=== PATIENT | female | born 1940 | race Caucasian/White ===

== ENCOUNTER → 2016-08-05 | Outpatient (CLI) | payer MEDICARE, BC ==
--- NOTE | 2016-08-06 08:30 | USB ---
Reason for exam: follow-up at short interval from prior study. History: Patient is postmenopausal and has history of high-risk lesion on a previous biopsy at age 67. Family history of premenopausal breast cancer in mother at age 50. Benign US biopsy breast VAD LT of the left breast, February 05, 2016. Excisional biopsy of the left breast, May 10, 2008. Benign left mammotome panel of the left breast, April 24, 2008. Benign left mammotome panel of the left breast, April 24, 2008. Excisional biopsy of the left breast, March 10, 2003. Benign stereotactic core biopsy of the left breast, August 11, 2002. Benign stereotactic core biopsy of the left breast, June 18, 2000. 2 core biopsies of the left breast. 3 benign excisional biopsies of the left breast. Took estrogen for 11 years 6 months beginning at age 56. Took progesterone for 11 years 6 months beginning at age 56. Physical Findings: Nurse did not find any significant physical abnormalities on exam. US Breast LT Left breast ultrasound includes all four quadrants, the retroareolar region and axilla. Finding demonstrates the biopsied excisional scar with adjacent calcification is redemonstrated at 11 o'clock. No other solid or cystic change. Dense tissues in the upper outer quadrant. These results were verbally communicated with the patient and result sheet given to the patient on 08/05/16. ASSESSMENT: Benign, BI-RAD 2 RECOMMENDATION: Return to routine screening mammogram schedule for both breasts. Back on schedule.
== END | disposition home or self-care (01) ==
LOC: RADUSWWP 14:03
PROVIDERS: ATTEND Internal Medicine
DX: R92.8 Other abnormal and inconclusive findings on diagnostic imaging of breast (principal)

== ENCOUNTER 2016-10-28 12:33 | Emergency (ER) | payer MEDICARE, BC ==
[2016-10-28] MEDS ORDERED: HYDROcodone/APAP 5-325MG 1 EACH TAB PO STA (12:58)
--- NOTE | 2016-10-28 13:04 | ED ---
Fall HPI - General Chief Complaint: Fall Stated Complaint: Fall Time Seen by Provider: 10/28/16 12:45 Source: patient Mode of arrival: EMS - History of Present Illness Initial Comments: 74-year-old female patient presents to emergency department today for evaluation after she experienced a fall. Patient states around 12:00 this afternoon she was walking when she twisted her ankle on some uneven sidewalk and fell forward and hit her face on the cement. Patient denies any loss of consciousness. She is complaining of "severe" headache, facial pain, and states she is unable to breathe through her left nostril. He is also complaining of some mild right ankle pain with flexion and extension. Patient states she was able to get up and ambulated over to the EMS stretcher. She denies any nausea, vomiting, chest pain, back pain, neck pain, abdominal pain, shortness of breath, dizziness, weakness, blurred, or double vision. Patient has not had a tetanus shot. Current GCS is 15. - Related Data Home Medications Medication Instructions Recorded Confirmed Ergocalciferol [Vitamin D2] 50,000 unit PO Q7D 10/28/16 10/28/16 Levothyroxine Sodium [Levoxyl] 137 mcg PO DAILY 10/28/16 10/28/16 Allergies Allergy/AdvReac Type Severity Reaction Status Date / Time aspirin Allergy Unknown Verified 10/28/16 12:48 Iodinated Contrast- Oral and AdvReac Nausea & Unverified 10/28/16 12:48 IV Dye Vomiting [Iodinated Contrast Media - IV Dye] Review of Systems ROS Statement: Those systems with pertinent positive or pertinent negative responses have been documented in the HPI. ROS Other: All systems not noted in ROS Statement are negative. Past Medical History Past Medical History: Thyroid Disorder Additional Past Medical History / Comment(s): colitis, brain aneurysm History of Any Multi-Drug Resistant Organisms: None Reported Past Surgical History: Cholecystectomy, Orthopedic Surgery Additional Past Surgical History / Comment(s): craniotomy r/t aneurysm Past Psychological History: No Psychological Hx Reported Smoking Status: Never smoker Past Alcohol Use History: Occasional Past Drug Use History: None Reported General Exam Limitations: no limitations General appearance: alert, in no apparent distress Head exam: Present: normocephalic. Absent: atraumatic (Abrasion and laceration noted to nasal bridge, abrasion to Center of forehead), normal inspection Eye exam: Present: normal appearance, PERRL, EOMI. Absent: scleral icterus, conjunctival injection, periorbital swelling Pupils: Present: normal accommodation ENT exam: Present: normal exam, normal oropharynx, mucous membranes moist Neck exam: Present: normal inspection, other (C-collar in place). Absent: tenderness, meningismus, full ROM (C-collar in place), lymphadenopathy Respiratory exam: Present: normal lung sounds bilaterally. Absent: respiratory distress, wheezes, rales, rhonchi, stridor Cardiovascular Exam: Present: regular rate, normal rhythm, normal heart sounds. Absent: systolic murmur, diastolic murmur, rubs, gallop, clicks GI/Abdominal exam: Present: soft, normal bowel sounds. Absent: distended, tenderness, guarding, rebound, rigid Extremities exam: Present: full ROM, tenderness (Over medial malleolus on the right ankle.), normal capillary refill. Absent: normal inspection (Small laceration noted to palmar aspect of the right hand.), pedal edema, joint swelling, calf tenderness Back exam: Present: normal inspection, full ROM. Absent: tenderness Neurological exam: Present: alert, oriented X3, CN II-XII intact Psychiatric exam: Present: normal affect, normal mood Skin exam: Present: warm, dry, intact, normal color. Absent: rash Course Vital Signs 10/28/16 12:38 Temperature 97.4 F L Pulse Rate 63 Respiratory 18 Rate Blood Pressure 158/69 O2 Sat by Pulse 97 Oximetry Procedures - Laceration Laceration #1 Consent Obtained: verbal consent Time Out Performed: Yes Indication: laceration Site: face Size (cm): 2 Description: linear Depth: simple, single layer Anesthetic Used: lidocaine 1% Anesthesia Technique: local infiltration Amount (mls): 3 Pre-repair: wound explored, irrigated extensively Type of Sutures: nylon Size of Sutures: 6-0 Number of Sutures: 2 Technique: simple, interrupted Patient Tolerated Procedure: well, no complications Laceration #2 Consent Obtained: verbal consent Time Out Performed: Yes Indication: laceration Site: hand Size (cm): 3 Description: linear Depth: simple, single layer Anesthetic Used: lidocaine 1% Anesthesia Technique: local infiltration Amount (mls): 3 Pre-repair: wound explored, irrigated extensively Type of Sutures: nylon Size of Sutures: 5-0 Number of Sutures: 3 Technique: simple, interrupted Patient Tolerated Procedure: well, no complications Medical Decision Making - Medical Decision Making 75-year-old female patient presented to emergency department today for evaluation after she experienced a fall. Patient was complaining of headache, nasal pain, and right ankle pain. CT of the brain and C-spine revealed a minimally displaced comminuted fracture to the nasal bones, but no acute intracranial hemorrhage, midline shift, or skull fracture. Incidental findings on CT were some changes from a right craniotomy. X-ray of the right ankle revealed no acute osseous abnormalities. Tetanus updated. Patient will be discharged home with instructions to follow up with ENT. Patient instructed regarding return parameters. Patient instructed to return for any new, worsening, or concerning symptoms. Patient verbalizes understanding and agrees with this plan. - Radiology Data Radiology results: report reviewed, image reviewed CT of the brain and C-spine impression by Dr. Royal reveals no acute fracture or dislocation evident in the cervical spine, no acute intracranial hemorrhage or midline shift is seen. 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 Acute comminuted minimally displaced fractures of the nasal bones. No additional acute facial bone fracture or dislocation is seen. X-ray of the right ankle reveals no acute osseous abdomen ALLERGIES. Disposition Clinical Impression: Fall, Nasal bone fracture, Laceration of nose, Laceration of hand Disposition: HOME SELF-CARE Condition: Good Instructions: Nasal Fracture (ED), Fall Prevention for Older Adults (ED), Contusion in Adults (ED), Abrasion (ED) Additional Instructions: Keep lacerations clean and dry. Cleanse stitched areas twice daily with warm water and soap prevent scabbing. Follow up for evaluation with ENT in 1-2 days. Return for any signs or symptoms of infection including but not limited to redness, swelling, drainage of pus, fever, or chills. Return for any new, worsening, or concerning symptoms. Referrals: Halina Herzog MD [Primary Care Provider] - 1-2 days Ismael Ji MD [REFERRING] - 1-2 days Time of Disposition: 15:00
--- NOTE | 2016-10-28 13:59 | CT ---
EXAMINATION TYPE: CT brain cspine wo con, CT facial bones wo con DATE OF EXAM: 10/28/2016 COMPARISON: NONE HISTORY: Patient complains of fall today with nasal abrasion and facial pain. Patient complains of h eadache, nose, and neck pain post fall. CT DLP: 1488.0 (accession [id number]), 384.4 (accession [id number]) mGycm. Automated Exposure Control for Dose Reduction was Utilized. TECHNIQUE: CT scan of the head, facial bones, and cervical spine are all performed without contrast. FINDINGS: There is right temporal craniectomy with artifact from aneurysm clips along course of rig ht middle cerebral artery. There is vague oval area of hypodensity anterior right frontal lobe could reflect area of encephalomalacia but central hyperdensity or sulci makes other etiologies such as mas s with vasogenic edema not excluded. Former is favored. There is no acute intracranial hemorrhage or midline shift. There is ventricular and sulcal prominence consistent with diffuse cerebral atrophy. T here is low-attenuation in the periventricular white matter. There is higher right frontal temporal c raniotomy and surinder hole changes. There is acute comminuted minimally displaced fracture through nasal bones bilaterally. There is mild associated soft tissue swelling. The zygomatic arches are intact bilaterally. The orbital floors and charles are intact bilaterally. The globes are intact bilaterally. There is poor visualization of left lens. Right lens is slightly asymmetrically thickened of uncertain clinical significance. The visual ized mandible is intact. Temporomandibular joints are maintained bilaterally. The pterygoid plates ar e intact bilaterally. Cervical spine is visualized in its entirety from C1 through upper thoracic levels and demonstrates s traightened alignment without evidence of acute fracture or dislocation. Prevertebral soft tissue ap pears within normal limits. The C1-C2 articulation is within normal limits on the coronal images. Osseous structures are demineralized. Vertebral body heights are maintained. There is moderate spurri ng and disc space narrowing C4-C5 and C5-C6 levels. There is mild to moderate spurring and disc space narrowing C6-C7 level. Posterior spur disc complexes are effacing anterior thecal sac at C4-C5 and C 5-C6 levels on sagittal images. Review of axial images shows lung apices to appear clear. Right thyroid lobe is slightly more promine nt. There are left-sided uncovertebral facet degenerative changes C3-C4 level causing mild left-sided neural foraminal narrowing. IMPRESSION: 1. There is no acute fracture or dislocation evident in the cervical spine. 2. No acute intracranial hemorrhage or midline shift is seen. Right frontal lobe findings favor encep halomalacia related to aneurysm and/or surgery, correlation with old outside studies would be benefic ial to confirm. If new finding further investigation with contrast-enhanced CT would be recommended. 3. Acute comminuted minimally displaced fractures of nasal bones. No additional acute facial bone fra cture or dislocation is seen.
--- NOTE | 2016-10-28 14:46 | XR ---
EXAMINATION TYPE: XR ankle complete RT DATE OF EXAM: 10/28/2016 CLINICAL HISTORY: Rolling injury with pain TECHNIQUE: Frontal, lateral and oblique images of the right ankle are obtained. COMPARISON: None. FINDINGS: There is no acute fracture/dislocation evident in the right ankle. The ankle mortise appe ars within normal limits. There are moderate-sized superior and inferior calcaneal spurs. Occasional phlebolith is seen in the soft tissue distal leg level. IMPRESSION: There is no acute fracture or dislocation in the right ankle.
[2016-10-28] MEDS ORDERED: DIPH,PERTUS(ACELL)TETVAC-LF 0.5 ML VIAL IM ONE (15:02)
[2016-10-28 15:12] VITALS: BP 145/68; PULSE 61; RESP 20; TEMP 98.2
== END 2016-10-28 15:30 | disposition home or self-care (01) ==
LOC: EC 12:33
DX: S02.2XXA Fracture of nasal bones, initial encounter for closed fracture (principal); S01.21XA Laceration without foreign body of nose, initial encounter; S61.411A Laceration without foreign body of right hand, initial encounter; E07.9 Disorder of thyroid, unspecified; Z23 Encounter for immunization; Z79.899 Other long term (current) drug therapy; Z88.6 Allergy status to analgesic agent; Z91.041 Radiographic dye allergy status; W18.00XA Striking against unspecified object with subsequent fall, initial encounter; X50.1XXA Overexertion from prolonged static or awkward postures, initial encounter
CPT/HCPCS: 12002; 12011; 70450; 70486; 72125; 90471; 90715; 99285

== ENCOUNTER → 2017-01-08 | Outpatient (CLI) | payer MEDICARE, BC ==
--- NOTE | 2017-01-09 14:46 | MM ---
Reason for exam: screening (asymptomatic). Last mammogram was performed 11 months ago. History: Patient is postmenopausal and has history of high-risk lesion on a previous biopsy at age 67. Family history of premenopausal breast cancer in mother at age 50. Benign US biopsy breast VAD LT of the left breast, February 05, 2016. Excisional biopsy of the left breast, May 10, 2008. Benign left mammotome panel of the left breast, April 24, 2008. Benign left mammotome panel of the left breast, April 24, 2008. Excisional biopsy of the left breast, March 10, 2003. Benign stereotactic core biopsy of the left breast, August 11, 2002. Benign stereotactic core biopsy of the left breast, June 18, 2000. 2 core biopsies of the left breast. 3 benign excisional biopsies of the left breast. Took estrogen for 11 years 6 months beginning at age 56. Took progesterone for 11 years 6 months beginning at age 56. Physical Findings: A clinical breast exam by your physician is recommended on an annual basis and results should be correlated with mammographic findings. MG 3D Screening Mammo W/Cad Bilateral CC and MLO view(s) were taken. Prior study comparison: February 05, 2016, left breast MG diagnostic mammo LT wo CAD. January 10, 2016, left breast US breast workup limited LT. January 04, 2016, bilateral MG 3d screening mammo w/cad. November 24, 2012, [facility] DIGITAL RIGHT MAMMOGRAM w/CAD. The breast tissue is heterogeneously dense. This may lower the sensitivity of mammography. There is at new 3-4mm mass in the left lower inner quadrant. There is a 3mm group of upper central right breast calcifications 10cm from nipple. ASSESSMENT: Incomplete: need additional imaging evaluation, BI-RAD 0 RECOMMENDATION: Special view mammogram of both breasts. If lesion persists on supplemental views, image directed ultrasound is recommended. [facility] will attempt to contact patient to return for supplemental views and ultrasound if indicated.
== END | disposition home or self-care (01) ==
LOC: RADMAMWWP 11:34
PROVIDERS: ATTEND Internal Medicine
DX: Z12.31 Encounter for screening mammogram for malignant neoplasm of breast (principal)
CPT/HCPCS: 77063; G0202

== ENCOUNTER → 2017-01-13 | Outpatient (CLI) | payer MEDICARE, BC ==
--- NOTE | 2017-01-14 07:39 | MM ---
Reason for exam: additional evaluation requested from abnormal screening. Last mammogram was performed less than 1 month ago. History: Patient is postmenopausal and has history of high-risk lesion on a previous biopsy at age 67. Family history of premenopausal breast cancer in mother at age 50. Benign US biopsy breast VAD LT of the left breast, February 05, 2016. Excisional biopsy of the left breast, May 10, 2008. Benign left mammotome panel of the left breast, April 24, 2008. Benign left mammotome panel of the left breast, April 24, 2008. Excisional biopsy of the left breast, March 10, 2003. Benign stereotactic core biopsy of the left breast, August 11, 2002. Benign stereotactic core biopsy of the left breast, June 18, 2000. 2 core biopsies of the left breast. 3 benign excisional biopsies of the left breast. Took estrogen for 11 years 6 months beginning at age 56. Took progesterone for 11 years 6 months beginning at age 56. Physical Findings: Nurse did not find any significant physical abnormalities on exam. MG 3D Work Up W/Cad [facility]ONZO Bilateral CC and MLO view(s) were taken. Prior study comparison: January 08, 2017, bilateral MG 3d screening mammo w/cad. February 05, 2016, left breast MG diagnostic mammo LT wo CAD. Finding #1: Architectural distortion in the left breast consistent with previous biopsy. Finding #2: There are typically benign calcifications in the right breast. Stable 4mm nodule in the left breast. These results were verbally communicated with the patient and result sheet given to the patient on 01/13/17. ASSESSMENT: Probably benign, BI-RAD 3 RECOMMENDATION: Follow-up diagnostic mammogram of both breasts in 6 months.
== END ==
LOC: RADMAMWWP 15:36
PROVIDERS: ATTEND Internal Medicine
DX: R92.8 Other abnormal and inconclusive findings on diagnostic imaging of breast (principal)
CPT/HCPCS: G0204; G0279

== ENCOUNTER → 2017-06-30 | Outpatient (CLI) | payer MEDICARE, BC ==
--- NOTE | 2017-06-30 11:51 | MM ---
Reason for exam: additional evaluation requested from prior study. Last mammogram was performed 6 months ago. History: Patient is postmenopausal and has history of high-risk lesion on a previous biopsy at age 67. Family history of premenopausal breast cancer in mother at age 50. Benign US biopsy breast VAD LT of the left breast, February 05, 2016. Excisional biopsy of the left breast, May 10, 2008. Benign left mammotome panel of the left breast, April 24, 2008. Benign left mammotome panel of the left breast, April 24, 2008. Excisional biopsy of the left breast, March 10, 2003. Benign stereotactic core biopsy of the left breast, August 11, 2002. Benign stereotactic core biopsy of the left breast, June 18, 2000. 2 core biopsies of the left breast. 3 benign excisional biopsies of the left breast. Took estrogen for 11 years 6 months beginning at age 56. Took progesterone for 11 years 6 months beginning at age 56. Physical Findings: Nurse did not find any significant physical abnormalities on exam. MG 3D Diag Mammo W/Cad ALONZO Bilateral CC and MLO view(s) were taken. Prior study comparison: January 13, 2017, bilateral MG 3d work up w/cad ALONZO. January 08, 2017, bilateral MG 3d screening mammo w/cad. The breast tissue is heterogeneously dense. This may lower the sensitivity of mammography. There is a very minimal increased in size of the 3mm group of calcifications in the upper central slightly outer right breast at middle depth. Continued 6 month follow up diagnostic mammogram is recommended considering these were not present in 2016. However the patient has numerous bilateral calcifications. Post therapy change on the right breast. These results were verbally communicated with the patient and result sheet given to the patient on 06/30/17. ASSESSMENT: Probably benign, BI-RAD 3 RECOMMENDATION: Follow-up diagnostic mammogram of the right breast in 6 months.
== END | disposition home or self-care (01) ==
LOC: RADMAMWWP 10:00
PROVIDERS: ATTEND Internal Medicine
DX: R92.8 Other abnormal and inconclusive findings on diagnostic imaging of breast (principal)
CPT/HCPCS: 77066; G0279

== ENCOUNTER → 2017-08-31 | Outpatient (CLI) | payer MEDICARE, BC ==
--- NOTE | 2017-08-31 10:31 | XR ---
EXAMINATION TYPE: XR chest 2V DATE OF EXAM: 08/31/2017 COMPARISON: NONE HISTORY: Shortness of breath TECHNIQUE: Frontal and lateral views of the chest are obtained. FINDINGS: Scattered senescent parenchymal changes noted. Hyperinflation compatible with COPD. No evidence for infiltrate. No evidence for atelectasis. Heart size is stable. Mediastinal structures are stable and grossly unremarkable. No evidence for hilar prominence. Degenerative changes dorsal spine. IMPRESSION: 1. No evidence for acute pulmonary disease.
--- NOTE | 2017-08-31 10:32 | XR ---
EXAMINATION TYPE: XR shoulder complete RT DATE OF EXAM: 08/31/2017 CLINICAL HISTORY: pain TECHNIQUE: Three views of the right shoulder are obtained. COMPARISON: None FINDINGS: There is no acute fracture/dislocation evident. The acromioclavicular and glenohumeral katy int spaces appear moderately narrowed. The visualized ribs are intact and unremarkable. IMPRESSION: 1. There is no acute fracture or dislocation. ICD 10 NO FRACTURE, INITIAL EVALUATION
--- NOTE | 2017-08-31 10:34 | XR ---
EXAMINATION TYPE: XR ribs RT DATE OF EXAM: 08/31/2017 CLINICAL HISTORY: Pain, Fall Four views of the ribs demonstrate linear lucency involving right rib #8 which may reflect nondisplac ed rib fracture. Correlate clinically. Visualized lungs are clear. No evidence for pneumothorax. IMPRESSION: 1. Nondisplaced fracture right rib 8 is difficult to exclude. ICD 10 NO FRACTURE, INITIAL EVALUATION
== END | disposition home or self-care (01) ==
LOC: RADXRMAIN 10:04
PROVIDERS: ATTEND Internal Medicine
DX: T14.90XA Injury, unspecified, initial encounter (principal)
CPT/HCPCS: 71046

== ENCOUNTER → 2017-09-17 | Outpatient (CLI) | payer MEDICARE, BC ==
--- NOTE | 2017-09-17 11:17 | XR ---
EXAMINATION TYPE: XR ribs RT DATE OF EXAM: 09/17/2017 COMPARISON: NONE HISTORY: Contusion right ribs TECHNIQUE: 2 views right ribs FINDINGS: No acute displaced fractures are evident. No pneumothorax is evident on these images. IMPRESSION: 1. Normal right ribs
== END | disposition home or self-care (01) ==
LOC: RADXRMAIN 10:48
PROVIDERS: ATTEND Internal Medicine
DX: S20.211D Contusion of right front wall of thorax, subsequent encounter (principal)

== ENCOUNTER → 2017-12-31 | Outpatient (CLI) | payer MEDICARE, BC ==
--- NOTE | 2017-12-31 11:38 | MM ---
Reason for exam: follow-up at short interval from prior study. Last mammogram was performed 6 months ago. History: Patient is postmenopausal and has history of high-risk lesion on a previous biopsy at age 67. Family history of premenopausal breast cancer in mother at age 50. Benign US biopsy breast VAD LT of the left breast, February 05, 2016. Excisional biopsy of the left breast, May 10, 2008. Benign left mammotome panel of the left breast, April 24, 2008. Benign left mammotome panel of the left breast, April 24, 2008. Excisional biopsy of the left breast, March 10, 2003. Benign stereotactic core biopsy of the left breast, August 11, 2002. Benign stereotactic core biopsy of the left breast, June 18, 2000. 2 core biopsies of the left breast. 3 benign excisional biopsies of the left breast. Taking estrogen for 11 years 6 months beginning at age 56. Taking progesterone for 11 years 6 months beginning at age 56. Physical Findings: Nurse did not find any significant physical abnormalities on exam. MG 3D Diag Mammo W/Cad RT CC and MLO view(s) were taken of the right breast. Prior study comparison: June 30, 2017, bilateral MG 3d diag mammo w/cad ALONZO. January 13, 2017, bilateral MG 3d work up w/cad ALONZO. The breast tissue is extremely dense which could obscure a lesion on mammography. Finding: There are 5 stable, heterogeneous, grouped/clustered calcifications in the 12 o'clock middle position of the right breast. These results were verbally communicated with the patient and result sheet given to the patient on 12/31/17. ASSESSMENT: Probably benign, BI-RAD 3 RECOMMENDATION: Follow-up diagnostic mammogram of both breasts in 6 months.
== END | disposition home or self-care (01) ==
LOC: RADMAMWWP 10:30
PROVIDERS: ATTEND Internal Medicine
DX: R92.8 Other abnormal and inconclusive findings on diagnostic imaging of breast (principal)
CPT/HCPCS: 77065; G0279; 77061

== ENCOUNTER → 2018-07-02 | Outpatient (CLI) | payer MEDICARE, BC ==
--- NOTE | 2018-07-02 11:49 | MM ---
Reason for exam: additional evaluation requested from prior study. Last mammogram was performed 6 months ago. History: Patient is postmenopausal and has history of high-risk lesion on a previous biopsy at age 67. Family history of premenopausal breast cancer in mother at age 50. Benign US biopsy breast VAD LT of the left breast, February 05, 2016. Excisional biopsy of the left breast, May 10, 2008. Benign left mammotome panel of the left breast, April 24, 2008. Benign left mammotome panel of the left breast, April 24, 2008. Excisional biopsy of the left breast, March 10, 2003. Benign stereotactic core biopsy of the left breast, August 11, 2002. Benign stereotactic core biopsy of the left breast, June 18, 2000. 2 core biopsies of the left breast. 3 benign excisional biopsies of the left breast. Taking estrogen for 11 years 6 months beginning at age 56. Taking progesterone for 11 years 6 months beginning at age 56. Physical Findings: Nurse did not find any significant physical abnormalities on exam. MG 3D Diag Mammo W/Cad ALONZO Bilateral CC and MLO view(s) were taken. Prior study comparison: December 31, 2017, right breast MG 3d diag mammo w/cad RT. June 30, 2017, bilateral MG 3d diag mammo w/cad ALONZO. No significant new findings when compared with previous films. These results were verbally communicated with the patient and result sheet given to the patient on 07/02/18. ASSESSMENT: Probably benign, BI-RAD 3 RECOMMENDATION: Follow-up diagnostic mammogram of the right breast in 6 months.
== END | disposition home or self-care (01) ==
LOC: RADMAMWWP 10:40
PROVIDERS: ATTEND Internal Medicine
DX: R92.8 Other abnormal and inconclusive findings on diagnostic imaging of breast (principal)
CPT/HCPCS: 77066; G0279; 77062

== ENCOUNTER → 2019-02-02 | Outpatient (CLI) | payer MEDICARE, BC ==
--- NOTE | 2019-02-02 14:48 | MM ---
Reason for exam: follow-up at short interval from prior study. Last mammogram was performed 7 months ago. History: Patient is postmenopausal and has history of high-risk lesion on a previous biopsy at age 67. Family history of premenopausal breast cancer in mother at age 50. Benign US biopsy breast VAD LT of the left breast, February 05, 2016. Excisional biopsy of the left breast, May 10, 2008. Benign left mammotome panel of the left breast, April 24, 2008. Benign left mammotome panel of the left breast, April 24, 2008. Excisional biopsy of the left breast, March 10, 2003. Benign stereotactic core biopsy of the left breast, August 11, 2002. Benign stereotactic core biopsy of the left breast, June 18, 2000. 2 core biopsies of the left breast. 3 benign excisional biopsies of the left breast. Took hormonal contraceptives for 4 years. Taking estrogen for 11 years 6 months beginning at age 56. Taking progesterone for 11 years 6 months beginning at age 56. Physical Findings: Nurse Summary: 0.5cm nodule in the right breast at 9 o'clock (nurse mary). MG 3D Diag Mammo W/Cad RT CC and MLO view(s) were taken of the right breast. Prior study comparison: July 02, 2018, bilateral MG 3d diag mammo w/cad ALONZO. December 31, 2017, right breast MG 3d diag mammo w/cad RT. The breast tissue is heterogeneously dense. This may lower the sensitivity of mammography. There is a 3mm group of right upper outer quadrant calcifications, new from 2017 and increased from 2018, they are heterogenous, biopsy recommended. These results were verbally communicated with the patient and result sheet given to the patient on 02/02/19. ASSESSMENT: Incomplete: need additional imaging evaluation, BI-RAD 0 RECOMMENDATION: Ultrasound of the right breast. (palpable)
--- NOTE | 2019-02-02 14:51 | USB ---
Reason for exam: additional evaluation requested from abnormal screening. History: Patient is postmenopausal and has history of high-risk lesion on a previous biopsy at age 67. Family history of premenopausal breast cancer in mother at age 50. Benign US biopsy breast VAD LT of the left breast, February 05, 2016. Excisional biopsy of the left breast, May 10, 2008. Benign left mammotome panel of the left breast, April 24, 2008. Benign left mammotome panel of the left breast, April 24, 2008. Excisional biopsy of the left breast, March 10, 2003. Benign stereotactic core biopsy of the left breast, August 11, 2002. Benign stereotactic core biopsy of the left breast, June 18, 2000. 2 core biopsies of the left breast. 3 benign excisional biopsies of the left breast. Took hormonal contraceptives for 4 years. Taking estrogen for 11 years 6 months beginning at age 56. Taking progesterone for 11 years 6 months beginning at age 56. US Breast Limited RT Right limited breast ultrasound including focal area of concern, retroareolar and axilla demonstrates appearance of dense tissue at 9-10 o'clock, no focal area noted. Right stereotactic biopsy recommended for calcifications. These results were verbally communicated with the patient and result sheet given to the patient on 02/02/19. ASSESSMENT: Suspicious, BI-RAD 4 RECOMMENDATION: Stereotactic core biopsy of the right breast. Called office with mammographic findings and has scheduled an appointment for the patient for 03/28/19 at 12:[address] Herzog. Biopsy scheduled for 03/17/19 at 10:20. PRELIMINARY REPORT CALLED AND FAXED TO DR. HERZOG ON 02/02/19.
== END | disposition home or self-care (01) ==
LOC: RADMAMWWP 12:41
PROVIDERS: ATTEND Internal Medicine
DX: R92.8 Other abnormal and inconclusive findings on diagnostic imaging of breast (principal)
CPT/HCPCS: 77065; 76642; G0279; 77061

== ENCOUNTER → 2019-03-17 | Day surgery (SDC) | payer MEDICARE, BC ==
[2019-03-17 09:49] VITALS: TEMP 97.2
[2019-03-17 11:38] VITALS: BP 135/73; PULSE 60
--- NOTE | 2019-03-17 11:57 | MM ---
EXAMINATION TYPE: MG stereo VAD BX RT DATE OF EXAM: 03/17/2019 COMPARISON: Right breast mammogram dated 02/02/2019 CLINICAL HISTORY: 3 mm group of indeterminate calcifications in the right breast for which stereotactic guided biopsy was recommended. TECHNIQUE: Stereotactic guided core biopsy of right breast. FINDINGS: The procedure of stereotactic guided core biopsy was explained to the patient. Benefits, alternatives, and risks were discussed. An informed consent was then obtained. Preprocedural timeout was performed. The shortness pathway for biopsy was chosen. Shortness pathway was CC from above approach. Preprocedural localization images were obtained and a 3 mm group of calcifications within the upper inner right breast was demonstrated. Coordinates were calculated. Subsequently 17 cc of lidocaine without epinephrine was utilized to anesthetize the skin and deeper subcutaneous soft tissues. The needle was advanced to the appropriate depth. Prefire images were obtained ensuring appropriate location. Postfire injection of 10 cc of lidocaine with epinephrine was utilized to anesthetize the site of biopsy. A vacuum assisted biopsy gun was used to obtain 9 core samples. The patient tolerated the procedure well without any immediate complication. The patient was kept in the radiology department for short stay after the procedure and then discharged home in stable condition. Targeted calcifications are identified in specimen mammogram. Post biopsy mammogram shows the T-shaped biopsy marker to appear in satisfactory position relative to the targeted area of concern on the preprocedure images without migration. IMPRESSION: SUCCESSFUL, UNCOMPLICATED STEREOTACTIC GUIDED CORE BIOPSY OF A 3 MM GROUP OF CALCIFICATIONS IN THE UPPER INNER QUADRANT OF THE RIGHT BREAST, FULL PATHOLOGY RESULTS TO FOLLOW. 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 An appropriately controlled immunohistochemical study for cytokeratin 5/6 is negative in the glands in question supporting a diagnosis of ADH. Recommendation Surgical consult of the right breast. (ADH) MTDD
== END ==
LOC: RADMAMWWP 09:09
PROVIDERS: ATTEND Internal Medicine
DX: N60.91 Unspecified benign mammary dysplasia of right breast (principal)
CPT/HCPCS: 88305; 88342; 19081; A4648; J2001

== ENCOUNTER → 2020-06-20 | Outpatient (CLI) | payer MEDICARE, BC ==
--- NOTE | 2020-06-20 10:01 | MM ---
Reason for exam: additional evaluation requested from prior study. Last mammogram was performed 1 year and 5 months ago. History: Patient is postmenopausal and has history of high-risk lesion on a previous biopsy at age 78. Family history of premenopausal breast cancer in mother at age 50. High risk MG stereo VAD BX RT of the right breast, March 17, 2019. Benign US biopsy breast VAD LT of the left breast, February 05, 2016. Excisional biopsy of the left breast, May 10, 2008. Benign left mammotome panel of the left breast, April 24, 2008. Benign left mammotome panel of the left breast, April 24, 2008. Excisional biopsy of the left breast, March 10, 2003. Benign stereotactic core biopsy of the left breast, August 11, 2002. Benign stereotactic core biopsy of the left breast, June 18, 2000. 2 core biopsies of the left breast. 3 benign excisional biopsies of the left breast. Took hormonal contraceptives for 4 years. Taking estrogen for 11 years 6 months beginning at age 56. Taking progesterone for 11 years 6 months beginning at age 56. Physical Findings: Nurse did not find any significant physical abnormalities on exam. MG 3D Diag Mammo W/Cad ALONZO Bilateral CC, MLO, and XCCL view(s) were taken. Prior study comparison: February 02, 2019, right breast MG 3d diag mammo w/cad RT. July 02, 2018, bilateral MG 3d diag mammo w/cad ALONZO. Finding: There is a typically benign 3 mm circumscribed round mass located 9 cm from the nipple in the lower inner quadrant, middle position of the left breast, present previously. Previous mammotome biopsy in the right and left breast. No significant changes in finding since February 02, 2019 and July 02, 2018. These results were verbally communicated with the patient and result sheet given to the patient on 06/20/20. ASSESSMENT: Benign, BI-RAD 2 RECOMMENDATION: Routine screening mammogram of both breasts in 1 year.
== END | disposition home or self-care (01) ==
LOC: RADMAMWWP 08:56
PROVIDERS: ATTEND Internal Medicine
DX: R92.8 Other abnormal and inconclusive findings on diagnostic imaging of breast (principal)
CPT/HCPCS: 77066; G0279; 77062

== ENCOUNTER 2021-02-09 19:32 | Emergency (ER) | payer MEDICARE, BC ==
[2021-02-09 19:51] VITALS: PULSE 77; RESP 16; TEMP 97.1
[2021-02-09] MEDS ORDERED: ORPHENADRINE 30 MG/ML 2 ML VIAL IM STA (20:21)
[2021-02-09] MEDS ORDERED: KETOROLAC 15 MG/ML 1 ML VIAL IM STA (20:21)
--- NOTE | 2021-02-09 20:26 | ED ---
General Adult HPI - General Chief complaint: Extremity Injury, Lower Stated complaint: Fall-R leg injury Time Seen by Provider: 02/09/21 20:16 Source: patient, RN notes reviewed, old records reviewed Mode of arrival: wheelchair - History of Present Illness Initial comments: 80-year-old female, well-appearing alert and oriented 4, presents to the emergency room with complaints of right posterior thigh pain. Patient states that she went to step over a bench and tripped. She felt a sharp pull in the back of her thigh. States feels like a charley horse. She states that she did not fall. She states her position of comfort is with flexion of the knee. She states when she tries to extend it. It increases her pain. She denies falling. She denies hip or pelvis pain. She denies any knee pain. -: hour(s) (2) Location: left, lower extremity (thigh posterior) Radiation: non-radiation Severity scale (1-10): 10 Quality: aching, other ("yakov horse") Consistency: constant Improves with: immobilization (flexion of knee) Worsens with: movement Associated Symptoms: denies other symptoms Treatments Prior to Arrival: none - Related Data Home Medications Medication Instructions Recorded Confirmed Balsalazide Disodium 2,250 mg PO TID 03/04/19 02/09/21 Dorzolamide/Timolol/Pf 1 drop BOTH EYES BID 03/04/19 02/09/21 [Dorzolamide 2%-Timolol 0.5%] Estradiol 0.25 mg PO DAILY 03/04/19 02/09/21 Latanoprost/Pf [Latanoprost 0.005% 1 drop BOTH EYES HS 03/04/19 02/09/21 Eye Drop] Diphenoxylate HCl/Atropine 2 tab PO BID PRN 02/09/21 02/09/21 [Lomotil 2.5-0.025 mg Tablet] Ergocalciferol [Vitamin D2 (1250 1,250 mcg PO SA 02/09/21 02/09/21 Mcg = 53180 Iu)] Levothyroxine Sodium [Levoxyl] 125 mcg PO DAILY 02/09/21 02/09/21 Omeprazole 20 mg PO DAILY 02/09/21 02/09/21 Vits A,C,E/Lutein/Minerals 1 tab PO BID 02/09/21 02/09/21 [Ocuvite with Lutein Tablet] medroxyPROGESTERone [Provera] 2.5 mg PO DAILY 02/09/21 02/09/21 Previous Rx's Medication Instructions Recorded Cyclobenzaprine [Flexeril] 5 mg PO TID PRN #15 tablet 02/10/21 Ibuprofen [Motrin] 600 mg PO Q8HR PRN #30 tab 02/10/21 Allergies Allergy/AdvReac Type Severity Reaction Status Date / Time aspirin AdvReac Abdominal Verified 02/09/21 23:34 Pain Iodinated Contrast Media AdvReac Nausea & Verified 02/09/21 23:34 [Iodinated Contrast Media - Vomiting IV Dye] Review of Systems ROS Statement: Those systems with pertinent positive or pertinent negative responses have been documented in the HPI. ROS Other: All systems not noted in ROS Statement are negative. Past Medical History Past Medical History: Eye Disorder, Thyroid Disorder Additional Past Medical History / Comment(s): colitis, brain aneurysm (right side was clipped, left side is being monitored),bilateral glaucoma, hypothyroidism, History of Any Multi-Drug Resistant Organisms: None Reported Past Surgical History: Cholecystectomy, Orthopedic Surgery, Tubal Ligation Additional Past Surgical History / Comment(s): craniotomy r/t aneurysm, Left ankle reconstruction, Past Anesthesia/Blood Transfusion Reactions: No Reported Reaction Additional Past Anesthesia/Blood Transfusion Reaction / Comment(s): Patient had a blood transfusion following a miscarriage at age 23, no reaction reported. Patient states that she is 'hard to numb' with local anesthesia. Past Psychological History: No Psychological Hx Reported Smoking Status: Former smoker Past Alcohol Use History: Occasional Past Drug Use History: None Reported - Past Family History Mother Family Medical History: Cancer Additional Family Medical History / Comment(s): breast cancer dx at age 50, (mets to bone discovered at age 55; at age 59) General Exam General appearance: alert, in no apparent distress Head exam: Present: atraumatic, normocephalic, normal inspection Eye exam: Present: normal appearance, EOMI ENT exam: Present: normal exam, normal oropharynx, mucous membranes moist Neck exam: Present: normal inspection, full ROM. Absent: tenderness, meningismus, lymphadenopathy Respiratory exam: Present: normal lung sounds bilaterally. Absent: respiratory distress, wheezes, rales, rhonchi, stridor Cardiovascular Exam: Present: regular rate, normal rhythm, normal heart sounds. Absent: systolic murmur, diastolic murmur, rubs, gallop, clicks Right Hip exam: Absent: tenderness Upper Leg exam: Present: tenderness (Pain in the posterior thigh, unable to straighten the leg ). Absent: full ROM Knee exam: Absent: tenderness, swelling, full knee extension Lower Leg exam: Absent: tenderness Neurological exam: Present: alert, oriented X3 Psychiatric exam: Present: normal affect, normal mood Skin exam: Present: warm, dry, intact, normal color. Absent: rash Course Vital Signs 02/09/21 02/10/21 19:44 00:10 Temperature 97.1 F L Pulse Rate 77 Respiratory 16 Rate Blood Pressure 145/72 138/55 O2 Sat by Pulse 97 Oximetry - Reevaluation(s) Reevaluation #1: 02/09/21 22:00 Patient still unable to straighten her leg. She was given a dose of morphine after the Norflex and Toradol. She was given a warm pack to apply. Will reassess Time: 22:00 Reevaluation #2: 02/09/21 23:48 Patient states that she still unable to straighten her leg or bear any weight on the right side. She was given additional pain medications. X-ray was ordered of the hip pelvis and knee. Time: 23:48 Medical Decision Making - Medical Decision Making X-ray of the knee and CT at that pelvis is negative for fracture or dislocation. Patient is able to straighten the knee with some discomfort. This is likely hamstring muscle strain. She'll be given Flexeril and directed to follow up with her primary care doctor next week. She states she has crutches she can use. I did discuss this case with Dr. Rizo who also evaluated the patient. Disposition Clinical Impression: Hamstring muscle strain Disposition: HOME SELF-CARE Condition: Good Instructions (If sedation given, give patient instructions): Muscle Strain (ED) Additional Instructions: Take Flexeril as prescribed and Motrin as needed for pain. Use crutches to help with ambulation. Follow-up with your primary care doctor next week. Prescriptions: Cyclobenzaprine [Flexeril] 5 mg PO TID PRN #15 tablet PRN Reason: Muscle Spasm Ibuprofen [Motrin] 600 mg PO Q8HR PRN #30 tab PRN Reason: Pain Is patient prescribed a controlled substance at d/c from ED?: No Referrals: Halina Herzog MD [Primary Care Provider] - 1-2 days Time of Disposition: 00:34
[2021-02-09] MEDS ORDERED: MORPHINE SULFATE 2 MG/ML SYRINGE IM ONE (21:22)
[2021-02-09] MEDS ORDERED: diazePAM 2 MG TAB PO STA (22:20)
[2021-02-09] MEDS ORDERED: HYDROmorphone 0.5 MG/0.5 ML SYRINGE IVP STA (23:28)
--- NOTE | 2021-02-10 00:09 | XR ---
EXAMINATION TYPE: XR knee limited RT DATE OF EXAM: 02/09/2021 COMPARISON: NONE HISTORY: Leg pain TECHNIQUE: 2 views FINDINGS: I see no fracture nor dislocation. Joint spaces are fairly normal. There is no sign of a kn ee joint effusion. IMPRESSION: Negative right knee exam.
[2021-02-10 00:10] VITALS: BP 138/55
--- NOTE | 2021-02-10 00:20 | CT ---
EXAMINATION TYPE: CT pelvis wo con DATE OF EXAM: 02/10/2021 COMPARISON: 11/17/2014 HISTORY: right sided pain after fall. prior CT A/P with contrast on PACS CT DLP: 509.4 mGycm Automated exposure control for dose reduction was used. Images obtained from the iliac crests to the subtrochanteric femurs without contrast. There is a rounded fat density mass in the second part of the duodenum consistent with a lipoma that is a change compared to old exam and measures 1.5 cm. There is no free fluid in the pelvis. Bladder distends smoothly. There is no sign of pelvic lymphaden opathy. Uterus appears normal. There is no inguinal hernia. The proximal femurs and hip joints are intact acetabula appear intact. The sacroiliac joints are inta ct. There is no evidence of a fracture. The hip joint spaces are fairly well-maintained. The sacrum a nd coccyx appear intact. There is some degenerative disc space narrowing in the lower lumbar spine at L4-5 and L5-S1 with vacuum disc. There is no compression fracture. IMPRESSION: No acute abnormality of the pelvis. No fracture. No adverse change compared to old exam.
== END 2021-02-10 00:53 | disposition home or self-care (01) ==
LOC: EC 19:32
DX: S76.811A Strain of other specified muscles, fascia and tendons at thigh level, right thigh, initial encounter (principal); E03.9 Hypothyroidism, unspecified; Z87.891 Personal history of nicotine dependence; Z79.1 Long term (current) use of non-steroidal anti-inflammatories (NSAID); Z79.890 Hormone replacement therapy; Z79.899 Other long term (current) drug therapy; Z88.6 Allergy status to analgesic agent; Z80.3 Family history of malignant neoplasm of breast; Z90.49 Acquired absence of other specified parts of digestive tract; W18.40XA Slipping, tripping and stumbling without falling, unspecified, initial encounter
CPT/HCPCS: 73560; 72192; 99284; 96372 ×3; J2360; J2270; J1885

== ENCOUNTER → 2021-06-19 | Outpatient (CLI) | payer MEDICARE, BC ==
--- NOTE | 2021-06-20 09:07 | MM ---
Reason for exam: additional evaluation requested from prior study. Last mammogram was performed 1 year ago. History: Patient is postmenopausal and has history of high-risk lesion on a previous biopsy at age 78. Family history of premenopausal breast cancer in mother at age 50. High risk MG stereo VAD BX RT of the right breast, March 17, 2019. Benign US biopsy breast VAD LT of the left breast, February 05, 2016. Excisional biopsy of the left breast, May 10, 2008. Benign left mammotome panel of the left breast, April 24, 2008. Benign left mammotome panel of the left breast, April 24, 2008. Excisional biopsy of the left breast, March 10, 2003. Benign stereotactic core biopsy of the left breast, August 11, 2002. Benign stereotactic core biopsy of the left breast, June 18, 2000. 2 core biopsies of the left breast. 3 benign excisional biopsies of the left breast. Took hormonal contraceptives for 4 years. Taking estrogen for 11 years 6 months beginning at age 56. Taking progesterone for 11 years 6 months beginning at age 56. Physical Findings: A clinical breast exam by your physician is recommended on an annual basis and results should be correlated with mammographic findings. MG 3D Diag Mammo W/Cad ALONZO Bilateral CC, MLO, and XCCL view(s) were taken. CC with magnification, LM with magnification, and LM view(s) were taken of the left breast. Prior study comparison: June 20, 2020, bilateral MG 3d diag mammo w/cad ALONZO. February 02, 2019, right breast MG 3d diag mammo w/cad RT. The breast tissue is extremely dense which could obscure a lesion on mammography. Finding: There are developing fine, grouped/clustered calcifications in the upper outer quadrant, middle position of the left breast, 13cm from the nipple. Post surgical changes in the right breast. New finding since June 20, 2020 and February 02, 2019. ASSESSMENT: Suspicious, BI-RAD 4 RECOMMENDATION: Stereotactic core biopsy of the left breast. Called office with mammographic findings and has scheduled an appointment for the patient for 07/22/21 at 2:[address] Herzog. Biopsy scheduled for 07/15/21 at 7:00. PRELIMINARY REPORT CALLED AND FAXED TO DR. HERZOG ON 06/20/21.
== END | disposition home or self-care (01) ==
LOC: RADMAMWWP 13:29
PROVIDERS: ATTEND Internal Medicine
DX: R92.8 Other abnormal and inconclusive findings on diagnostic imaging of breast (principal); Z78.0 Asymptomatic menopausal state; Z80.3 Family history of malignant neoplasm of breast
CPT/HCPCS: 77066; G0279; 77062

== ENCOUNTER → 2021-07-15 | Day surgery (SDC) | payer MEDICARE, BC ==
[2021-07-15 07:40] VITALS: RESP 16
[2021-07-15 08:58] VITALS: BP 142/83; PULSE 65; TEMP 98.5
--- NOTE | 2021-07-15 10:24 | MM ---
Stereotactic Mammotome core biopsy left breast. HISTORY: Microcalcifications The Microcalcifications in question within the left breast were targeted by the undersigned. Procedure was performed by the undersigned. Informed consent was obtained and all of the patients questions were answered. The standard sterile technique was utilized and appropriate local anesthesia was obtained with 1% licocaine. Mammotome probe was advanced and multiple core samples were obtained and sent to pathology for interpretation. Microclip marker was deployed at the site of biopsy. Post procedural mammogram demonstrates appropriate deployment of radiopaque clip marker. The patient tolerated the procedure well and left the department in stable condition. Pathology results are pending. IMPRESSION: Successful stereotactic core biopsy left breast with pathology results pending. Pathology Results: Benign LEFT BREAST, CORE BIOPSY: Fibrosis with columnar cell change/hyperplasia and scattered areas of microcalcification. Negative for in situ or invasive malignancy. Recommendation Follow up mammogram of the left breast in 6 months. BERE
== END ==
LOC: RADMAMWWP 07:29
PROVIDERS: ATTEND Internal Medicine
DX: R92.0 Mammographic microcalcification found on diagnostic imaging of breast (principal)
CPT/HCPCS: 19081; 88305; A4648; J2001

== ENCOUNTER → 2022-01-23 | Outpatient (CLI) | payer MEDICARE, BC ==
--- NOTE | 2022-01-23 13:51 | MM ---
Reason for Exam: Follow-up at short interval from prior study. Last screening mammogram was performed 7 month(s) ago. Patient History: Menarche at age 15. First Full-Term at age 21. Postmenopausal. Currently using Estrogen, beginning at age 56 for 11 years, 6 months. Currently using Progesterone, beginning at age 56 for 11 years, 6 months. Patient used Hormonal Contraceptives for 4 years. Benign Excisional Biopsy on the left side. Benign Excisional Biopsy on the left side. 05/10/2008, Excisional Biopsy on the Left side. 03/10/2003, Excisional Biopsy on the Left side. Core Biopsy on the Left side. Core Biopsy on the Left side. Benign Excisional Biopsy on the left side. 07/15/2021, Benign Core Biopsy on the left side. 03/17/2019, High risk Core Biopsy on the right side. 02/05/2016, Benign Core Biopsy on the left side. 04/24/2008, Benign Core Biopsy on the left side. 04/24/2008, Benign Core Biopsy on the left side. 08/11/2002, Benign Stereotactic Core Biopsy on the left side. 06/18/2000, Benign Stereotactic Core Biopsy on the left side. Mother had breast cancer, age 50. Daughter had breast cancer at or over age 50. Risk Values: Rubina 5 year model risk: 11.7%. NCI Lifetime model risk: 18.7%. Prior Study Comparison: 02/02/2019 Right Diagnostic Mammogram, [facility]. 06/20/2020 Bilateral Diagnostic Mammogram, [facility]. 06/19/2021 Bilateral Diagnostic Mammogram, [facility]. Tissue Density: Left: The breast tissue is heterogeneously dense. This may lower the sensitivity of mammography. Findings: Analyzed By CAD. Microclips in the left breast from prior biopsy. One of the lateral clips relates to the more recent biopsy for calcifications. Unchanged irregular asymmetric density central inner left cc view. Chronic nodularity lower outer quadrant left breast as well as the anterior superior aspect of the left breast. No significant change from prior exams. Overall Assessment: Benign, BI-RAD 2 Management: Diagnostic Mammogram of both breasts in 6 months. Note the patient's very high Rubina score and overall lifetime risk for the development of breast cancer. Consider specialist referral to assess eligibility for a risk reducing agent. Patient should continue monthly self breast exams. These results should not preclude additional follow-up of suspicious palpable abnormalities. Results were given to the patient verbally at the time of exam. Electronically signed and approved by: Breonna Ventura M.D. Radiologist
== END | disposition home or self-care (01) ==
LOC: RADMAMWWP 13:00
PROVIDERS: ATTEND Internal Medicine
DX: R92.8 Other abnormal and inconclusive findings on diagnostic imaging of breast (principal); Z78.0 Asymptomatic menopausal state; Z80.3 Family history of malignant neoplasm of breast
CPT/HCPCS: 77065; G0279; 77061

== ENCOUNTER 2022-01-28 08:39 | Day surgery (SDC) | payer MEDICARE, BC ==
[2022-01-24 11:40] VITALS: BMI 29.4
[~2022-01-28 08:39] MED LIST: LACTATED RINGERS 1,000 ML IV SCH
[2022-01-28 09:12] VITALS: RESP 16; TEMP 97.4
[2022-01-28] MEDS ORDERED: PROPOFOL 10 MG/ML 20 ML VIAL IV ONE (10:04)
[2022-01-28] MEDS ORDERED: LIDOCAINE 2% INJ 20 MG/ML (2 ML VIAL) ONE (10:04)
--- NOTE | 2022-01-28 10:20 | P.PCN ---
Date of Procedure: 01/28/22 Procedure(s) Performed: BRIEF HISTORY: Patient is a 81-year-old pleasant 8 female scheduled for an elective colonoscopy as a part of evaluation of l surveillanceong-standing history of ulcerative colitis diagnosed in 2014. She is in clinical remission. PROCEDURE PERFORMED: Colonoscopy. PREOPERATIVE DIAGNOSIS: HISTORY OF ulcerative colitis. IV sedation per Anesthesia. PROCEDURE: After informed consent was obtained, the patient, was brought into the endoscopy unit. IV sedation was administered by Anesthesia under continuous monitoring. Digital rectal examination was normal. Initially the Olympus CF-160 flexible video colonoscope was then inserted in the rectum, gradually advanced into the cecum without any difficulty. Careful examination was performed as the scope was gradually being withdrawn. Ileocecal valve and the appendiceal orifice were visualized and appeared normal. Prep was excellent. Mucosa of the cecum, ascending colon, transverse colon, descending colon, sigmoid colon, and rectum appeared normal. biopsies were done from the cecum to rectum at every 10 cm intervals to rule out dysplasia. Retroflexion was performed in the rectum and no lesions were seen. The patient tolerated the procedure well. IMPRESSION: Normal-appearing colon from rectum to cecum with no evidence of colitis or colorectal neoplasia . RECOMMENDATIONS: Findings of this examination were discussed with the patient .as well as her family. She was advised to follow with the biopsy results. She will continue with balsalazide daily.
[2022-01-28 10:39] VITALS: BP 110/56; PULSE 58
== END 2022-01-28 11:04 | disposition home or self-care (01) ==
LOC: ORWHC2ENDO 08:39
PROVIDERS: ATTEND Internal Medicine Gastroenterology
DX: Z12.11 Encounter for screening for malignant neoplasm of colon (principal); G43.909 Migraine, unspecified, not intractable, without status migrainosus; I67.1 Cerebral aneurysm, nonruptured; H40.9 Unspecified glaucoma; Z87.891 Personal history of nicotine dependence; Z79.899 Other long term (current) drug therapy; Z98.890 Other specified postprocedural states; Z88.8 Allergy status to other drugs, medicaments and biological substances; Z87.19 Personal history of other diseases of the digestive system
CPT/HCPCS: 45380; J2704; J2001; 88305

== ENCOUNTER → 2022-07-18 | Outpatient (CLI) | payer MEDICARE, BC ==
--- NOTE | 2022-07-18 15:05 | MM ---
Reason for Exam: Follow-up at short interval from prior study. Last mammogram was performed 1 year(s) and 1 month(s) ago. Patient History: Menarche at age 15. First Full-Term at age 21. Postmenopausal. Currently using Estrogen, beginning at age 56 for 11 years, 6 months. Currently using Progesterone, beginning at age 56 for 11 years, 6 months. Patient used Hormonal Contraceptives for 4 years. Benign Excisional Biopsy on the left side. Benign Excisional Biopsy on the left side. 05/10/2008, Excisional Biopsy on the Left side. 03/10/2003, Excisional Biopsy on the Left side. Core Biopsy on the Left side. Core Biopsy on the Left side. Benign Excisional Biopsy on the left side. 07/15/2021, Benign Core Biopsy on the left side. 03/17/2019, High risk Core Biopsy on the right side. 02/05/2016, Benign Core Biopsy on the left side. 04/24/2008, Benign Core Biopsy on the left side. 04/24/2008, Benign Core Biopsy on the left side. 08/11/2002, Benign Stereotactic Core Biopsy on the left side. 06/18/2000, Benign Stereotactic Core Biopsy on the left side. Mother had breast cancer, age 50. Daughter had breast cancer at or over age 50. Risk Values: Rubina 5 year model risk: 11.7%. NCI Lifetime model risk: 18.7%. Prior Study Comparison: 01/04/2016 Bilateral Screening Mammogram, [facility]. 01/10/2016 Left Diagnostic Ultrasound, [facility]. 02/05/2016 Left Diagnostic Mammogram, [facility]. 01/08/2017 Bilateral Screening Mammogram, [facility]. 02/02/2019 Right Diagnostic Mammogram, [facility]. 02/02/2019 Right Diagnostic Ultrasound, [facility]. 06/20/2020 Bilateral Diagnostic Mammogram, [facility]. 06/19/2021 Bilateral Diagnostic Mammogram, [facility]. 01/23/2022 Left MG 3D diag mammo w/cad , [facility]. Tissue Density: The breast tissue is extremely dense which could obscure a lesion on mammography. Findings: Analyzed By CAD. Appears symmetrical and stable. Benign calcification is present bilaterally. There is a surgical clip within the right breast. There is a core marker within the left breast. Focal asymmetry within the left breast is stable. Grouping of calcifications within the right breast is stable. No suspicious groups of microcalcifications, spiculated or lobular masses, architectural distortion or other secondary signs of malignancy are mammographically apparent. Overall Assessment: Benign, BI-RAD 2 Management: Screening Mammogram of both breasts in 1 year. A negative mammogram report should not preclude additional follow up of suspicious palpable abnormalities. Patient should continue monthly self breast exam. A clinical breast exam by your physician is recommended on an annual basis and results should be correlated with mammographic findings. Electronically signed and approved by: Santos Ramey D.O. Radiologis
== END | disposition home or self-care (01) ==
LOC: RADMAMWWP 12:51
PROVIDERS: ATTEND Internal Medicine
DX: R92.8 Other abnormal and inconclusive findings on diagnostic imaging of breast (principal); Z78.0 Asymptomatic menopausal state; Z80.3 Family history of malignant neoplasm of breast
CPT/HCPCS: 77066; G0279; 77062

== ENCOUNTER → 2022-11-25 | Outpatient (CLI) | payer MEDICARE, BC ==
[2022-11-25 16:22] LABS: Basophils # (A) 0.06 X 10*3/uL (0.00-0.10); Basophils % (A) 1.2 %; Eosinophils # (A) 0.09 X 10*3/uL (0.04-0.35); Eosinophils % (A) 1.8 %; HCT 40.9 % (37.2-46.3); HGB 12.9 d/dL (12.0-15.0); Lymphocytes # (A) 1.37 X 10*3/uL (0.90-5.00); Lymphocytes % (A) 27.6 %; MCH 30.9 pg (27.0-32.0); MCHC 31.5 d/dL (32.0-37.0); MCV 97.8 FL (80.0-97.0); Mean Platelet Volume 10.6 FL (9.5-12.2); Monocytes # (A) 0.37 X 10*3/uL (0.20-1.00); Monocytes % (A) 7.4 %; NRBC Per 100 WBC 0 X 10*3/uL (0.00-0.01); Neutrophils # (A) 3.06 X 10*3/uL (1.80-7.70); Neutrophils % (A) 61.6 %; Platelet Count 166 X 10*3/uL (140-440); RBC 4.18 X 10*6/uL (4.10-5.20); RDW 12.9 % (11.5-14.5); WBC 4.97 X 10*3/uL (4.50-10.00)
== END | disposition home or self-care (01) ==
LOC: LABWHC1 12:19
PROVIDERS: ATTEND Internal Medicine Gastroenterology
DX: K51.90 Ulcerative colitis, unspecified, without complications (principal)
CPT/HCPCS: 36415; 85025

== ENCOUNTER → 2023-03-24 | Outpatient (CLI) | payer MEDICARE, BC ==
[2023-03-24 18:40] LABS: HCT 43.6 % (37.2-46.3); HGB 13.7 g/dL (12.0-15.0); MCH 30.1 pg (27.0-32.0); MCHC 31.4 g/dL (32.0-37.0); MCV 95.8 FL (80.0-97.0); Mean Platelet Volume 11.2 FL (9.5-12.2); NRBC Per 100 WBC 0 X 10*3/uL (0.00-0.01); Platelet Count 141 X 10*3/uL (140-440); RBC 4.55 X 10*6/uL (4.10-5.20); RDW 13.2 % (11.5-14.5); WBC 5.27 X 10*3/uL (4.50-10.00)
[2023-03-24 19:02] LABS: Blood Urea Nitrogen 13.4 mg/dL (9.0-27.0); Carbon Dioxide 26.7 mmol/L (21.6-31.8); Chloride 109 mmol/L (96-109); Potassium 3.5 mmol/L (3.5-5.5); Sodium 146 mmol/L (135-145)
== END | disposition home or self-care (01) ==
LOC: LABPAT 15:20
PROVIDERS: ATTEND Internal Medicine Interventional Cardiology
DX: Z01.812 Encounter for preprocedural laboratory examination (principal); R94.39 Abnormal result of other cardiovascular function study
CPT/HCPCS: 80051; 82565; 84520; 85027

== ENCOUNTER 2023-04-02 05:58 | Day surgery (SDC) | payer MEDICARE, BC ==
[2023-04-02] MEDS ORDERED: NITROGLYCERIN SL TABS 0.4 MG TAB SUBLINGUAL PRN (06:11)
[2023-04-02] MEDS ORDERED: ALPRAZolam 0.25 MG TAB PO PRN (06:11)
[2023-04-02] MEDS ORDERED: SODIUM CHLORIDE 0.9% 1,000 ML in EMPTY BAG 1 BAG IV SCH (06:11)
[2023-04-02] MEDS ORDERED: ALPRAZolam 0.5 MG TAB PO PRN (06:11)
[2023-04-02] MEDS ORDERED: HEPARIN SODIUM,PORCINE (1 ML) 2,500 UNIT in SODIUM CHLORIDE 0.9% 250 ML IRRIGATION PRN (06:11)
[2023-04-02] MEDS ORDERED: ASPIRIN 325 MG TAB PO STA (06:11)
[2023-04-02] MEDS ORDERED: HEPARIN SODIUM,PORCINE 10,000 UNIT in SODIUM CHLORIDE 0.9% 1,000 ML IRRIGATION PRN (06:11)
[2023-04-02 07:02] VITALS: RESP 18; TEMP 97.1
[2023-04-02] MEDS ORDERED: VERAPAMIL 2.5 MG/ML 2 ML AMP ONE (07:12)
[2023-04-02] MEDS ORDERED: LIDOCAINE 1% INJ 10MG/ML (20 ML MDV) ONE (07:13)
[2023-04-02] MEDS ORDERED: HEPARIN SODIUM 1,000 UN/ML (10ML VL) ONE (07:13)
[2023-04-02] MEDS ORDERED: fentaNYL (PF) 50 MCG/ML 2 ML AMP ONE (07:13)
[2023-04-02] MEDS ORDERED: fentaNYL (PF) 50 MCG/1 ML VIAL IVP ONE (07:39)
[2023-04-02] MEDS ORDERED: LIDOCAINE 1% INJ 10MG/ML (20 ML MDV) SQ ONE (07:42)
[2023-04-02] MEDS ORDERED: MIDAZOLAM 2 MG/2 ML VIAL IVP ONE (07:45)
[2023-04-02] MEDS ORDERED: VERAPAMIL SYRINGE (5 MG/10 ML) INTRAARTER ONE (07:49)
[2023-04-02] MEDS ORDERED: HEPARIN SODIUM 1,000 UN/ML (10ML VL) IV ONE (07:51)
[2023-04-02] MEDS ORDERED: IOPAMIDOL-370 100ML BTL INJ ONE (07:57)
[2023-04-02] MEDS ORDERED: RX INFO: IV CONTRAST WAS GIVEN 1 EACH MISC MISCELLANE PRN (08:06)
--- NOTE | 2023-04-02 08:12 | P.CARDCATH ---
Date of Procedure: 04/02/23 Description of Procedure: Cardiac Catheterization: The patient is an 82-year-old female with history of hyperlipidemia who has been complaining of progressive symptoms of dyspnea and had an abnormal MPI. Recommendations were made regarding cardiac catheterization, the risks and the complications were discussed with the patient who is in full understanding and agreement. Procedure Description: Patient was brought to label folder in fasting semi-sedated state after receiving Fentanyl and Benadryl achieiving moderate conscious sedated state. Using Xylocaine Anesthesia and modified Seldinger technique, a 6-Malay sheath was introduced in the right radial artery . Subsequently, selective coronary angiography was performed using a 5-Malay 3.5 bend Jonathon catheter. Multiple views of the coronary artery including hemiaxial views were obtained. The 5-Malay pigtail catheter was used to cross the aortic valve and LVEDP was calculated. Following that, catheter and sheath were removed. Hemostasis was obtained with deployment of vascular band . There was no immediate complication. Patient was returned to room in stable condition. Of note, the patient received a total of 4500 units of intravenous heparin as well as intra-arterial verapamil. Findings: Left main: This is a short sized vessel, bifurcating into LAD and left circumflex, left main has no obstructive disease LAD: This is a large size vessel, giving rise to a large proximal diagonal branch, the LAD and its branches have no obstructive disease Left circumflex: This is a nondominant vessel giving rise to one large obtuse marginal branch that has no obstructive disease RCA: This is a large dominant vessel bifurcating distally to PDA and PLV, the RCA and its branches have no evidence of obstructive disease. Left Ventriculogram: Not performed Hemodynamics: There was no gradient across the aortic valve , LVEDP was 15-20 mmHg Conclusion: 1. Normal coronary arteries 2. Right dominance Recommendations: At this time I see no evidence of significant obstructive disease, we will continue present therapy and depending on her progress further recommendations will be made. The findings and the recommendations were discussed with the patient and the family and they were in full understanding and agreement. Duration of sedation is 18 minutes.
[2023-04-02] MEDS ORDERED: SODIUM CHLORIDE 0.9% 1,000 ML IV SCH (08:15)
[2023-04-02] MEDS ORDERED: NON FORMULARY DRUG (Aspirin Ec 81 MG Tablet) PO SCH (09:00)
[2023-04-02] MEDS ORDERED: LEVOTHYROXINE 125 MCG TAB PO SCH (09:00)
[2023-04-02 11:27] VITALS: BP 151/68; PULSE 71
[2023-04-02] MEDS ORDERED: NON FORMULARY DRUG (Rosuvastatin 20 MG Tablet) PO SCH (21:00)
== END 2023-04-02 11:59 | disposition home or self-care (01) ==
LOC: CATHCVL 05:58
PROVIDERS: ATTEND Internal Medicine Interventional Cardiology
DX: I25.10 Atherosclerotic heart disease of native coronary artery without angina pectoris (principal); E78.5 Hyperlipidemia, unspecified; K51.90 Ulcerative colitis, unspecified, without complications; Z87.891 Personal history of nicotine dependence; Z79.899 Other long term (current) drug therapy; Z79.82 Long term (current) use of aspirin
CPT/HCPCS: 93458; 99152; C1769 ×2; C1894; J2250; J2001; J1644; Q9967; J3010

== ENCOUNTER → 2023-07-20 | Outpatient (CLI) | payer MEDICARE, BC ==
--- NOTE | 2023-07-20 15:13 | MM ---
Reason for Exam: Follow-up at short interval from prior study. Last screening mammogram was performed 12 month(s) ago. Patient History: Menarche at age 15. First Full-Term at age 21. Postmenopausal. Currently using Estrogen, beginning at age 56 for 11 years, 6 months. Currently using Progesterone, beginning at age 56 for 11 years, 6 months. Patient used Hormonal Contraceptives for 4 years. Benign Excisional Biopsy on the left side. Benign Excisional Biopsy on the left side. 05/10/2008, Excisional Biopsy on the Left side. 03/10/2003, Excisional Biopsy on the Left side. Core Biopsy on the Left side. Core Biopsy on the Left side. Benign Excisional Biopsy on the left side. 07/15/2021, Benign Core Biopsy on the left side. 03/17/2019, High risk Core Biopsy on the right side. 02/05/2016, Benign Core Biopsy on the left side. 04/24/2008, Benign Core Biopsy on the left side. 04/24/2008, Benign Core Biopsy on the left side. 08/11/2002, Benign Stereotactic Core Biopsy on the left side. 06/18/2000, Benign Stereotactic Core Biopsy on the left side. Mother had breast cancer, age 50. Daughter had breast cancer at or over age 50. Risk Values: Rubina 5 year model risk: 11.4%. NCI Lifetime model risk: 17.0%. Prior Study Comparison: 06/02/1996 Screening Mammogram, Unknown. 01/04/2016 Bilateral Screening Mammogram, [facility]. 01/10/2016 Left Diagnostic Ultrasound, [facility]. 02/05/2016 Left Diagnostic Mammogram, [facility]. 08/05/2016 Left Diagnostic Ultrasound, [facility]. 01/08/2017 Bilateral Screening Mammogram, [facility]. 01/13/2017 Bilateral Diagnostic Mammogram, [facility]. 06/30/2017 Bilateral Diagnostic Mammogram, [facility]. 12/31/2017 Right Diagnostic Mammogram, [facility]. 07/02/2018 Bilateral Diagnostic Mammogram, [facility]. 02/02/2019 Right Diagnostic Mammogram, [facility]. 02/02/2019 Right Diagnostic Ultrasound, [facility]. 06/20/2020 Bilateral Diagnostic Mammogram, [facility]. 06/19/2021 Bilateral Diagnostic Mammogram, [facility]. 01/23/2022 Left MG 3D diag mammo w/cad LT, [facility]. 07/18/2022 Bilateral MG 3D diag mammo w/cad [facility], [facility]. Tissue Density: The breasts are extremely dense, which lowers the sensitivity of mammography. Findings: Analyzed By CAD. Postbiopsy changes seen bilaterally. No evidence for new mass or new area of distortion. Benign calcifications seen bilaterally. Overall Assessment: Benign, BI-RAD 2 Management: Diagnostic Mammogram of both breasts in 1 year. . Results were given to the patient verbally at the time of exam. Patient should continue monthly self-breast exams. A clinical breast exam by your physician is recommended on an annual basis. This exam should not preclude additional follow-up of suspicious palpable abnormalities. Note on Rubina scores and lifetime risk: 1. A Rubina score greater than 3% is considered moderate risk. If this is the case, consider specialist referral to assess eligibility for a risk reducing agent. 2. If overall lifetime risk for the development of breast cancer is 20% or higher, the patient may qualify for future screening with alternating mammogram and breast MRI. Electronically signed and approved by: Clay Mckeon M.D. Radiologis
== END | disposition home or self-care (01) ==
LOC: RADMAMWWP 13:38
PROVIDERS: ATTEND Internal Medicine
DX: R92.343 Mammographic extreme density, bilateral breasts (principal); R92.1 Mammographic calcification found on diagnostic imaging of breast; Z80.3 Family history of malignant neoplasm of breast; Z78.0 Asymptomatic menopausal state
CPT/HCPCS: 77066; G0279; 77062

== ENCOUNTER → 2024-07-04 | Outpatient (CLI) | payer MEDICARE, BC ==
--- NOTE | 2024-07-04 13:29 | MM ---
Reason for Exam: Hx of benign breast biopsy. Last screening mammogram was performed 12 month(s) ago. Patient History: Menarche at age 15. First Full-Term at age 21. Postmenopausal. Currently using Estrogen, beginning at age 56 for 11 years, 6 months. Currently using Progesterone, beginning at age 56 for 11 years, 6 months. Patient used Hormonal Contraceptives for 4 years. Benign Excisional Biopsy on the left side. Benign Excisional Biopsy on the left side. 05/10/2008, Excisional Biopsy on the Left side. 03/10/2003, Excisional Biopsy on the Left side. Core Biopsy on the Left side. Core Biopsy on the Left side. Benign Excisional Biopsy on the left side. 07/15/2021, Benign Core Biopsy on the left side. 03/17/2019, High risk Core Biopsy on the right side. 02/05/2016, Benign Core Biopsy on the left side. 04/24/2008, Benign Core Biopsy on the left side. 04/24/2008, Benign Core Biopsy on the left side. 08/11/2002, Benign Stereotactic Core Biopsy on the left side. 06/18/2000, Benign Stereotactic Core Biopsy on the left side. Mother had breast cancer, age 50. Daughter had breast cancer at or over age 50. Risk Values: Rubina 5 year model risk: 11.2%. NCI Lifetime model risk: 15.7%. Prior Study Comparison: 06/30/2017 Bilateral Diagnostic Mammogram, [facility]. 12/31/2017 Right Diagnostic Mammogram, [facility]. 07/02/2018 Bilateral Diagnostic Mammogram, [facility]. 02/02/2019 Right Diagnostic Mammogram, [facility]. 06/20/2020 Bilateral Diagnostic Mammogram, [facility]. 06/19/2021 Bilateral Diagnostic Mammogram, [facility]. 01/23/2022 Left MG 3D diag mammo w/cad LT, [facility]. 07/18/2022 Bilateral MG 3D diag mammo w/cad AL[facility], [facility]. 07/20/2023 Bilateral MG 3D diag mammo w/cad [facility], [facility]. Tissue Density: The breasts are heterogeneously dense, which may obscure small masses. Findings: Analyzed By CAD. Benign bilateral renal cysts and secretory calcifications. Postexcisional changes on both sides. Excisional scar central location left breast on the cc view. A couple microclips noted in the breasts. There is an area 1.5 cm nodularity anterior outer aspect left cc view for which further ultrasound evaluation is recommended. Areas of asymmetric density on the left MLO view remain unchanged. Overall Assessment: Incomplete: need additional imaging evaluation, BI-RAD 0 Management: Diagnostic Breast Ultrasound of the left breast. Electronically signed and approved by: Breonna Ventura M.D. Radiologist
--- NOTE | 2024-07-04 14:26 | USB ---
Reason for Exam: Follow-up at short interval from prior study. Patient History: Menarche at age 15. First Full-Term at age 21. Postmenopausal. Currently using Estrogen, beginning at age 56 for 11 years, 6 months. Currently using Progesterone, beginning at age 56 for 11 years, 6 months. Patient used Hormonal Contraceptives for 4 years. Benign Excisional Biopsy on the left side. Benign Excisional Biopsy on the left side. 05/10/2008, Excisional Biopsy on the Left side. 03/10/2003, Excisional Biopsy on the Left side. Core Biopsy on the Left side. Core Biopsy on the Left side. Benign Excisional Biopsy on the left side. 07/15/2021, Benign Core Biopsy on the left side. 03/17/2019, High risk Core Biopsy on the right side. 02/05/2016, Benign Core Biopsy on the left side. 04/24/2008, Benign Core Biopsy on the left side. 04/24/2008, Benign Core Biopsy on the left side. 08/11/2002, Benign Stereotactic Core Biopsy on the left side. 06/18/2000, Benign Stereotactic Core Biopsy on the left side. Mother had breast cancer, age 50. Daughter had breast cancer at or over age 50. Risk Values: Rubina 5 year model risk: 11.2%. NCI Lifetime model risk: 15.7%. Technique: Method: Targeted. Prior Study Comparison: 01/23/2022 Left MG 3D diag mammo w/cad LT, [facility]. 07/18/2022 Bilateral MG 3D diag mammo w/cad [facility], [facility]. 07/20/2023 Bilateral MG 3D diag mammo w/cad [facility], [facility]. Findings: The upper outer quadrant of the left breast, the axilla of the left breast and the retroareolar of the left breast were scanned. Targeted ultrasound upper outer quadrant left breast 12:00 to 3:00 including scanning of the subareolar region and axilla. At the 1:00 position, 4 cm from the nipple, there is a 1.3 x 1.3 x 0.9 cm circumscribed oval hypoechoic area that seems to be somewhat discrete from the adjacent fat lobules. Further assessment with tissue biopsy is recommended. No other solid or cystic lesion or axillary adenopathy. Overall Assessment: Suspicious, BI-RAD 4 Management: Ultrasound Core Biopsy of the left breast. Electronically signed and approved by: Breonna Ventura M.D. Radiologist
== END | disposition home or self-care (01) ==
LOC: RADMAMWWP 12:40
PROVIDERS: ATTEND Internal Medicine
DX: R92.8 Other abnormal and inconclusive findings on diagnostic imaging of breast (principal); R92.333 Mammographic heterogeneous density, bilateral breasts; Z80.3 Family history of malignant neoplasm of breast; Z78.0 Asymptomatic menopausal state; Z92.0 Personal history of contraception
CPT/HCPCS: 77066; 76642; G0279; 77062

== ENCOUNTER → 2024-07-20 | Day surgery (SDC) | payer MEDICARE, BC ==
--- NOTE | 2024-07-25 13:51 | MM ---
Reason for Exam: Post Procedure Mammogram. Last screening mammogram was performed less than 1 month ago. Patient History: Menarche at age 15. First Full-Term at age 21. Postmenopausal. Currently using Estrogen, beginning at age 56 for 11 years, 6 months. Currently using Progesterone, beginning at age 56 for 11 years, 6 months. Patient used Hormonal Contraceptives for 4 years. Benign Excisional Biopsy on the left side. Benign Excisional Biopsy on the left side. 05/10/2008, Excisional Biopsy on the Left side. 03/10/2003, Excisional Biopsy on the Left side. Core Biopsy on the Left side. Core Biopsy on the Left side. Benign Excisional Biopsy on the left side. 07/15/2021, Benign Core Biopsy on the left side. 03/17/2019, High risk Core Biopsy on the right side. 02/05/2016, Benign Core Biopsy on the left side. 04/24/2008, Benign Core Biopsy on the left side. 04/24/2008, Benign Core Biopsy on the left side. 08/11/2002, Benign Stereotactic Core Biopsy on the left side. 06/18/2000, Benign Stereotactic Core Biopsy on the left side. Mother had breast cancer, age 50. Daughter had breast cancer at or over age 50. Risk Values: Rubina 5 year model risk: 11.2%. NCI Lifetime model risk: 15.7%. Prior Study Comparison: 06/30/2017 Bilateral Diagnostic Mammogram, [facility]. 12/31/2017 Right Diagnostic Mammogram, [facility]. 07/02/2018 Bilateral Diagnostic Mammogram, [facility]. 02/02/2019 Right Diagnostic Mammogram, [facility]. 06/20/2020 Bilateral Diagnostic Mammogram, [facility]. 06/19/2021 Bilateral Diagnostic Mammogram, [facility]. 01/23/2022 Left MG 3D diag mammo w/cad LT, [facility]. 07/18/2022 Bilateral MG 3D diag mammo w/cad [facility], [facility]. 07/20/2023 Bilateral MG 3D diag mammo w/cad [facility], [facility]. 07/04/2024 Bilateral MG 3D diag mammo w/cad [facility], [facility]. Tissue Density: Left: The breasts are heterogeneously dense, which may obscure small masses. Pathology Description: Location: 1 o'clock. Marker Left Behind. Needle Type: Celero Cores: 3 Gauge: 12 The procedure of ultrasound guided core biopsy was explained to the patient. Benefits, alternatives, and risks were discussed. An informed consent was then obtained. The patient was placed in supine positioning for imaging and for the procedure. The overlying skin was prepped and draped in usual sterile fashion. Lidocaine buffered with bicarbonate was used as anesthetic into the skin and subcutaneous tissue up to area of concern in the left 1:00 lesion. Under ultrasound guidance, a 12-gauge vacuum assisted biopsy gun device was used to obtain 3 core samples. Following this, a biopsy clip was left in lesion. The patient tolerated the procedure well without any immediate complication. The patient was kept in the radiology department for short stay after the procedure and then discharged home in stable condition. Postprocedure mammogram: The patient was transferred to mammography for physician ordered post procedure mammogram for clip placement verification. Post procedure mammogram demonstrates the clip in appropriate placement. Impression: Successful, uncomplicated ultrasound guided core biopsy of area of concern in the left 1:00 breast, full pathology results to follow. [facility], Workstation: [id number], 07/20/2024 10:54 AM. Pathology Results: Result: Benign, Fibrocystic change. Pathology and radiology were reviewed. Findings are concordant. LEFT BREAST, 1:00 4 CM FROM NIPPLE, ULTRASOUND GUIDED CORE BIOPSY: Sclerotic fibrosis with fibrocystic change and focal columnar cell change/hyperplasia (see note). Focal microcalcification present. Negative for malignancy. Notes The sclerotic and hyalinized fibrosis is favored to represent fibrous scar, but a sclerotic and hyalinized fibroadenoma is a differential diagnosis consideration. Overall Assessment: Benign Assessment: MG diagnostic mammo LT wo CAD. - Left: Benign, BI-RAD 2. Management: Diagnostic Breast Ultrasound of the left breast in 6 months. Electronically signed and approved by: Clay Mckeon M.D. Radiologis
== END ==
LOC: RADUSWWP 07:15
PROVIDERS: ATTEND Internal Medicine
DX: N60.32 Fibrosclerosis of left breast (principal); N62 Hypertrophy of breast; R92.8 Other abnormal and inconclusive findings on diagnostic imaging of breast; Z78.0 Asymptomatic menopausal state; Z80.3 Family history of malignant neoplasm of breast; Z92.0 Personal history of contraception
CPT/HCPCS: 88305; 77065; 19083; A4648